=== PATIENT | female | born 1995 | race Caucasian/White ===

== ENCOUNTER 2017-09-29 12:59 | Emergency (ER) | payer SELFPAY ==
[~2017-09-29] VITALS: Ht 154.9 cm; Wt 110.2 kg
[2017-09-29 13:52] VITALS: Ht 154.9 cm; Wt 110.2 kg
[2017-09-29 15:13] VITALS: BP 142/84
== END 2017-09-29 15:13 | disposition home or self-care (01) ==
LOC: ED 12:59
DX: J06.9 Acute upper respiratory infection, unspecified (principal)
CPT/HCPCS: A4570; J7613; J7644; Q0092

== ENCOUNTER 2018-08-11 19:09 | Emergency (ER) | payer MEDICAID ==
[~2018-08-11] VITALS: Ht 154.9 cm; Wt 107.5 kg
[2018-08-11 19:29] VITALS: Ht 154.9 cm; Wt 107.5 kg
[2018-08-11 20:54] LABS: BASOPHIL % 0.2 % (0-2)
[2018-08-11 20:55] LABS: CALCIUM 8.8 mg/dL (8.5-10.1); CARBON DIOXIDE 25.5 mmol/L (21-32); CHLORIDE SERUM 97 mmol/L (98-107); CREATININE SERUM 0.8 mg/dL (0.6-1.0); GFR1 > 60 mL/min; GLUCOSE SERUM 114 mg/dL (74-106); POTASSIUM SERUM 3.6 mmol/L (3.5-5.1); SODIUM SERUM 134 mmol/L (136-145)
[2018-08-11 21:00] LABS: ALBUMIN 3.7 g/dL (3.4-5.0); ALKALINE PHOSPHATASE 93 U/L (46-116); ALT/SGPT 22 U/L (14-59); AST/SGOT 15 U/L (15-37); BILIRUBIN TOTAL 0.3 mg/dL (0.20-1.00); LIPASE 96 IU/L (73-393)
[2018-08-11 21:01] LABS: TOTAL PROTEIN, SERUM 8.9 g/dL (6.4-8.2)
[2018-08-11 21:03] LABS: UA SPECIFIC GRAVITY 1.025 (1.005-1.035); microscopic required? YES; urine erythrocyte 2+ (NEGATIVE)
[2018-08-11 21:15] LABS: PLATELET COUNT 484 x10^3mcL (130-400); RED CELL DISTRIBUTION WIDTH 19.5 % (11.5-14.5)
[2018-08-11 21:19] LABS: rbc morphology (normal/abnorm) ABNORMAL (NORMAL)
[2018-08-11 23:21] VITALS: BP 127/78
== END 2018-08-11 23:21 | disposition home or self-care (01) ==
LOC: ED 19:09
PROVIDERS: Emergency Medicine
DX: R10.12 Left upper quadrant pain (principal); R10.33 Periumbilical pain; R11.10 Vomiting, unspecified; D64.9 Anemia, unspecified; Z90.89 Acquired absence of other organs
CPT/HCPCS: J1885; J2405; J7030

== ENCOUNTER 2019-03-01 12:10 | Emergency (ER) | payer MEDICAID ==
[~2019-03-01] VITALS: Ht 154.9 cm; Wt 117.5 kg
[2019-03-01 12:16] VITALS: Ht 154.9 cm; Wt 117.5 kg
[2019-03-01 14:31] VITALS: BP 142/97
== END 2019-03-01 14:31 | disposition home or self-care (01) ==
LOC: ED 12:10
DX: N39.0 Urinary tract infection, site not specified (principal)